=== PATIENT | female | born 1960 | race Caucasian/White ===

== ENCOUNTER 2020-04-28 01:00 | Emergency (ER) | payer MEDICAID, SELFPAY ==
[2020-04-28 01:03] VITALS: BP 201/91; PULSE 120; RESP 18; TEMP 36.2; O2SAT 100; BMI 31.1
--- NOTE | 2020-04-28 01:16 | ECG_ITS ---
Test Reason : HTN Blood Pressure : / mmHG Vent. Rate : 125 BPM Atrial Rate : 125 BPM P-R Int : 150 ms QRS Dur : 144 ms QT Int : 352 ms P-R-T Axes : 068 032 -21 degrees QTc Int : 508 ms Sinus tachycardia with occasional Premature ventricular complexes Left bundle branch block Abnormal ECG When compared with ECG of 25-MAY-2019 21:39, Premature ventricular complexes are now Present Heart rate has increased Referred By: Kelsie Rutledge Electronically Signed By:GARRETT RIVERA MD
--- NOTE | 2020-04-28 01:16 | XR_ITS ---
EXAMINATION: XR CHEST CLINICAL INFORMATION: Cough COMPARISON: 05/25/2019 TECHNIQUE: Frontal view of the chest was obtained. FINDINGS: Cardiac leads overlie the chest. The lungs are well expanded. No edema or effusion. Minimal left basilar opacity. Mild bronchial wall thickening.. No pneumothorax. The cardiomediastinal silhouette is within normal limits. No acute osseous abnormality. XR/XR chest 1V IMPRESSION: Minimal opacity at the left base with atelectasis. Bronchial wall thickening suggests a small airways process.
[2020-04-28 01:27] VITALS: BP 183/106; PULSE 120; RESP 12; TEMP 36.2; O2SAT 98
--- NOTE | 2020-04-28 01:27 | ED_ITS ---
HPI - General Adult General Chief complaint: General Medical Stated complaint: High Blood Pressure Time Seen by Provider: 04/28/20 01:15 Source: patient Mode of arrival: ambulatory Limitations: no limitations History of Present Illness HPI narrative: This is a 60-year-old female with history of hypertension who states that she for that to take her medication yesterday but denies any associated headaches, dizziness, chest pain, shortness of breath, blurred vision. Related Data Home Medications Medication Instructions Recorded Confirmed amlodipine 2.5 mg PO DAILY 04/28/20 04/28/20 Allergies Allergy/AdvReac Type Severity Reaction Status Date / Time No Known Allergies Allergy Verified 04/28/20 01:01 Review of Systems Review of Systems: Pertinent positives and negatives as in HPI and 10 point review of systems otherwise negative. [facility], [facility] Past Medical History Source: nursing notes reviewed Medical History HTN (hypertension) Social History Social History Alcohol intake: never Smoked in Last 30 Days: No Use of substances other than those prescribed or required for medical reasons: No Advance Directives: No Physical Exam Vital Signs: Vital Signs: Last Vital Signs Temp 97.2 F 04/28/20 01:27 Pulse 96 04/28/20 04:58 Resp 12 04/28/20 01:27 BP 128/80 04/28/20 04:58 Pulse Ox 98 04/28/20 01:27 Body Mass Index 31.1 VITAL SIGNS: Reviewed. GENERAL: Well developed, well nourished, in no acute distress. HEAD: Normocephalic/atraumatic, EYES: PERRLA, EOMI intact without pain, no nystagmus/pallor/icterus noted EARS: Ext canals without abnormality, TMs non-bulging and non-erythematous NOSE: Nares patent bilateral OROPHARYNX: no oral lesions noted, posterior pharynx clear and non-erythematous without noted tonsillar enlargement/erythema/exudates NECK: Supple, no adenopathy LUNGS: Normal breath sounds. No adventitious sounds or accessory muscle use. SpO2<98> CARDIOVASCULAR: Regular rate and rhythm without noted murmurs, no JVD or lower extremity edema. ABDOMEN: Soft, non-tender, non-distended with bowel sounds. No rigidity. No guarding. No palpable masses or hernias noted MUSCULOSKELETAL: No tenderness, deformities, or effusions noted on gross inspection. EXTREMITIES: No cyanosis, clubbing or edema. SKIN: Inspection of the skin reveals no rashes, ulcerations, jaundice, pallor, or petechiae. NEUROLOGIC: Alert and oriented x 4. Strength and sensation to light touch were grossly intact x 4. Course Course Course Narrative: This is a 60-year-old female with history and clinical presentation consistent with significantly elevated blood pressure and will evaluate for any evidence of end-organ damage. On review of all investigations there is a very mild leukocytosis that is most consistent with stress response as chest x-ray and urinalysis are negative for any evidence of infection, and EKG is negative for any evidence of a mildly elevated patient has a HEART score of 3 and repeat high sensitivity troponin does not exceed the the Delta 50%. All results and findings were discussed with patient at bedside and she was strongly encouraged to follow-up with her primary care provider and to remain more consistent with her medication regimen. Patient was discharged in stable condition. Medical Decision Making Lab Data Result diagrams: 04/28/20 02:09 04/28/20 02:09 Labs: Lab Results 04/28/20 04/28/20 04/28/20 Range/Units 02:09 02:09 02:09 WBC 11.2 H (4.8-10.8) X10*3/uL RBC 4.99 (4.20-5.50) X10*6/uL Hgb 14.2 (12.0-16.0) g/dl Hct 43.9 (37-47) % MCV 88.0 (80-98) fL MCH 28.5 (27.0-33.0) pg MCHC 32.3 (31.0-35.0) g/dl RDW 13.3 (11.0-16.0) % Plt Count 451 H (160-400) X10*3/uL MPV 10.3 (9.4-12.3) fL Immature Gran % (Auto) 0.4 (0.0-0.4) % Neut % (Auto) 79.8 H (45-73) % Lymph % (Auto) 12.2 L (20-40) % [place] % (Auto) 4.7 (2-11) % Eos % (Auto) 2.6 (0-4) % Baso % (Auto) 0.3 (0-2) % Lymph # (Auto) 1.4 (1.2-4.9) X10*3/uL [place] # (Auto) 0.5 (0.1-1.2) X10*3/uL Eos # (Auto) 0.3 (0.0-0.4) X10*3/uL Baso # (Auto) 0.0 (0.0-0.2) X10*3/uL Abs Immat Gran (auto) 0.05 H (0.00-0.03) X10*3/uL Absolute Neuts (auto) 9.0 H (2.0-8.3) X10*3/uL Absolute Nucleated RBC 0.000 (0.0-0.012) X10*3/uL Nucleated RBC % (auto) 0.0 (0.0-0.2) /100WBC PT 11.3 (10.8-13.0) SEC INR 1.0 (0.9-1.1) Sodium 139 (135-145) mmol/L Potassium 4.2 (3.3-5.1) mmol/l Chloride 102 (96-108) mmol/L Carbon Dioxide 26 (22-29) mmol/L Anion Gap 15 (12-20) BUN 16 (9-16) mg/dL Creatinine 0.73 (0.5-1.4) mg/dL Estim Creat Clear Calc 77.8 Estimated GFR > 60 Random Glucose 127 H (60-115) mg/dL Calcium 10.2 (8.4-10.2) mg/dL Magnesium 1.9 (1.6-2.6) mg/dL Total Bilirubin 0.4 (0.0-1.0) mg/dL AST 24 (5-31) U/L ALT 31 (0-31) U/L Alkaline Phosphatase 119 H (39-117) U/L Troponin I High Sens (<3.5-17.0) ng/L Total Protein 8.9 H (6.5-8.0) g/dL Albumin 5.1 H (3.5-5.0) g/dL Lipase 30 (8-78) U/L Urine Color Urine Appearance Urine pH (5.0-8.0) Ur Specific [place] (1.005-1.025) Urine Protein (NEG-TRACE) MG/DL Urine Glucose (UA) (NEG) MG/DL Urine Ketones (NEG) MG/DL Urine Blood (NEG) Urine Nitrite (NEG) Ur Leukocyte Esterase (NEG) 04/28/20 04/28/20 04/28/20 Range/Units 02:09 02:09 05:07 WBC (4.8-10.8) X10*3/uL RBC (4.20-5.50) X10*6/uL Hgb (12.0-16.0) g/dl Hct (37-47) % MCV (80-98) fL MCH (27.0-33.0) pg MCHC (31.0-35.0) g/dl RDW (11.0-16.0) % Plt Count (160-400) X10*3/uL MPV (9.4-12.3) fL Immature Gran % (Auto) (0.0-0.4) % Neut % (Auto) (45-73) % Lymph % (Auto) (20-40) % [place] % (Auto) (2-11) % Eos % (Auto) (0-4) % Baso % (Auto) (0-2) % Lymph # (Auto) (1.2-4.9) X10*3/uL [place] # (Auto) (0.1-1.2) X10*3/uL Eos # (Auto) (0.0-0.4) X10*3/uL Baso # (Auto) (0.0-0.2) X10*3/uL Abs Immat Gran (auto) (0.00-0.03) X10*3/uL Absolute Neuts (auto) (2.0-8.3) X10*3/uL Absolute Nucleated RBC (0.0-0.012) X10*3/uL Nucleated RBC % (auto) (0.0-0.2) /100WBC PT (10.8-13.0) SEC INR (0.9-1.1) Sodium (135-145) mmol/L Potassium (3.3-5.1) mmol/l Chloride (96-108) mmol/L Carbon Dioxide (22-29) mmol/L Anion Gap (12-20) BUN (9-16) mg/dL Creatinine (0.5-1.4) mg/dL Estim Creat Clear Calc Estimated GFR Random Glucose (60-115) mg/dL Calcium (8.4-10.2) mg/dL Magnesium (1.6-2.6) mg/dL Total Bilirubin (0.0-1.0) mg/dL AST (5-31) U/L ALT (0-31) U/L Alkaline Phosphatase (39-117) U/L Troponin I High Sens 8.4 8.3 (<3.5-17.0) ng/L Total Protein (6.5-8.0) g/dL Albumin (3.5-5.0) g/dL Lipase (8-78) U/L Urine Color COLORLESS Urine Appearance CLEAR Urine pH 6.0 (5.0-8.0) Ur Specific [place] 1.010 (1.005-1.025) Urine Protein NEG (NEG-TRACE) MG/DL Urine Glucose (UA) NEG (NEG) MG/DL Urine Ketones NEG (NEG) MG/DL Urine Blood NEG (NEG) Urine Nitrite NEG (NEG) Ur Leukocyte Esterase NEG (NEG) Discharge Plan Discharge Clinical Impression: Hypertension Qualifiers: Hypertension type: unspecified Qualified Code(s): I10 - Essential (primary) hypertension Patient Disposition: Home, Self-Care Instructions: Hypertension (ED), DASH Eating Plan (ED), Low-Sodium Diet (ED) Additional Instructions: 1. Reanude todos los medicamentos caseros seg?n lo prescrito. 2. Llame al consultorio de keita proveedor de atenci?n primaria el lunes por la ma?eddie para programar martin maty de seguimiento. El paciente y / o la luz reconocen que comprenden los resultados (seg?n corresponda), el diagn?stico, el plan de tratamiento, la necesidad de seguimiento y los s?ntomas que deber?an impulsar el regreso a la yohana de emergencias. Prescriptions: No Action amlodipine 2.5 mg Tablet 2.5 mg PO DAILY RF: 0 Referrals: Libby Hassan NP [Primary Care Provider] - 2 days (For re-evaluation of high blood pressure.) Print Language: Belarusian
[2020-04-28 02:00] VITALS: BP 127/69; PULSE 102
[2020-04-28] MEDS: amLODIPine Besylate 5 MG TABLET PO (02:00)
[2020-04-28 02:17] LABS: Basophils Percent Auto 0.3 % (0-2); Eosinophils Absolute Auto 0.3 X10*3/uL (0.0-0.4); Eosinophils Percent Auto 2.6 % (0-4); Hematocrit 43.9 % (37-47); Hemoglobin 14.2 g/dl (12.0-16.0); Imm Gran Abs Auto 0.05 X10*3/uL (0.00-0.03); Imm Gran Pct Auto 0.4 % (0.0-0.4); Lymphocytes Absolute Auto 1.4 X10*3/uL (1.2-4.9); Lymphocytes Percent Auto 12.2 % (20-40); MANUAL DIFF FLAG NO; Mean Corpuscular HGB Conc 32.3 g/dl (31.0-35.0); Mean Corpuscular Hemoglobin 28.5 pg (27.0-33.0); Mean Platelet Volume 10.3 fL (9.4-12.3); Monocytes Absolute Auto 0.5 X10*3/uL (0.1-1.2); Monocytes Percent Auto 4.7 % (2-11); Neutrophils Percent Auto 79.8 % (45-73); Platelet Count 451 X10*3/uL (160-400); Red Blood Count 4.99 X10*6/uL (4.20-5.50); Red Cell Distribution Width 13.3 % (11.0-16.0); White Blood Count 11.2 X10*3/uL (4.8-10.8)
[2020-04-28 02:19] LABS: Glucose Urine UA NEG (NEG); Leukocyte Esterase Urine NEG (NEG); Nitrite Urine NEG (NEG); Urine Blood NEG (NEG); Urine Ketones NEG (NEG); Urine Protein NEG (NEG-TRACE)
[2020-04-28 02:21] LABS: Appearance Urine CLEAR; Color Urine COLORLESS; UACC Culture Trigger NO
[2020-04-28 02:24] LABS: Prothrombin Time 11.3 SEC (10.8-13.0)
--- NOTE | 2020-04-28 02:38 | PC.NURSE ---
pt is a&o, no sob or chest pain. no n/v. lv line in place. labs and ua collected and sent. pt placed on telemeter.
[2020-04-28 02:43] LABS: Alanine Aminotransferase 31 U/L (0-31); Albumin Level 5.1 g/dL (3.5-5.0); Alkaline Phosphatase 119 U/L (39-117); Anion Gap 15 (12-20); Aspartate Amino Transferase 24 U/L (5-31); Bilirubin Total 0.4 mg/dL (0.0-1.0); Blood Urea Nitrogen 16 mg/dL (9-16); Calcium 10.2 mg/dL (8.4-10.2); Carbon Dioxide 26 mmol/L (22-29); Chloride 102 mmol/L (96-108); Creatinine Clr Calc Pharmacy 77.8; Estimated Glomerular Filt Rate > 60; Glucose Random 127 mg/dL (60-115); Lipase 30 U/L (8-78); Magnesium 1.9 mg/dL (1.6-2.6); Potassium 4.2 mmol/l (3.3-5.1); Sodium 139 mmol/L (135-145); Total Protein 8.9 g/dL (6.5-8.0)
[2020-04-28 02:45] LABS: Troponin-I High Sensitivity 8.4 ng/L (<3.5-17.0)
[2020-04-28 04:58] VITALS: BP 128/80; PULSE 96
[2020-04-28 05:45] LABS: Troponin-I High Sensitivity 8.3 ng/L (<3.5-17.0)
== END 2020-04-28 06:13 | disposition home or self-care (01) ==
PROVIDERS: Emergency Provider Student in an Organized Health Care Education/Training Program; PCP Nurse Practitioner Family
DX: I10 Essential (primary) hypertension (principal); Z79.899 Other long term (current) drug therapy
CPT/HCPCS: 36415; 71045; 80053; 81003; 83690; 83735; 84484; 85025; 85610; 93005; 99284

== ENCOUNTER 2021-04-05 16:36 | Emergency (ER) | payer MEDICAID, SELFPAY ==
--- NOTE | ~2021-04-05 | CT_ITS ---
EXAMINATION: CT CHEST WITHOUT CONTRAST CLINICAL INFORMATION: Left supraclavicular mass. COMPARISON: Most recent chest radiograph dated 04/28/2020 TECHNIQUE: Multidetector volumetric CT imaging of the chest was done. Axial MIP volume rendering provided. Sagittal and coronal reformatted images were obtained. This CT examination was performed using dose optimization techniques as appropriate, variously including the following: *Automated exposure control *Adjustment of mA and/or kV according to patient size (this includes techniques or standardized protocols for targeted exams where dose is matched to indication/reason for exam; i.e. extremities or head) *Use of iterative reconstruction technique DLP: 316 mGy-cm FINDINGS: BIODIESEL PRODUCTION ASSOCIATE: Unremarkable. LUNGS: The lungs are clear with no evidence of inflammation or nodules. The central airways are patent. MEDIASTINUM: No cardiomegaly. No pericardial effusion. No thoracic aortic dilatation. No superior mediastinal or hilar lymphadenopathy. Surgical clips adjacent to the left thyroid. PLEURA: There is no pleural effusion. No pleural mass or thickening. CHEST WALL/AXILLA: No visualized abdominal wall mass or fluid collection. No significant mass in the supraclavicular regions, however, evaluation of the neck soft tissue structures is limited on chest imaging. No significant axillary or internal mammary lymphadenopathy. UPPER ABDOMEN: Mild hepatomegaly and hepatic steatosis. Status post cholecystectomy. Nonobstructing left upper pole 0.3 cm renal stone. Otherwise, the visualized upper abdominal structures are unremarkable. OSSEOUS STRUCTURES: Unremarkable. CT/CT chest wo con IMPRESSION: 1. No soft tissue mass or fluid collection. No significant lymphadenopathy. Evaluation of the supraclavicular regions is somewhat limited on the chest CT. 2. No pulmonary nodule, mass, or airspace consolidation. 3. Mild hepatomegaly and hepatic steatosis. Status post cholecystectomy. Nonobstructing left upper pole renal stone.
[2021-04-05 16:45] VITALS: BP 164/80; BP 175/75; PULSE 106; PULSE 109; RESP 18; TEMP 37.6; O2SAT 98; BMI 30.3
--- NOTE | 2021-04-05 16:45 | ECG_ITS ---
Test Reason : Q? EKG CHANGE Blood Pressure : / mmHG Vent. Rate : 111 BPM Atrial Rate : 111 BPM P-R Int : 132 ms QRS Dur : 148 ms QT Int : 364 ms P-R-T Axes : 080 036 -63 degrees QTc Int : 495 ms Sinus tachycardia Left bundle branch block Abnormal ECG Premature ventricular complexes are no longer Present Referred By: Jaspreet Wright Electronically Signed By:GARRETT RIVERA MD
--- NOTE | 2021-04-05 16:53 | ED.GENADULT ---
HPI - General Adult General Chief complaint: General Medical Stated complaint: htn Time Seen by Provider: 04/05/21 16:52 History of Present Illness HPI narrative: Patient history of intermittent left bundle branch block on amlodipine 2.5 mg daily [facility] blood pressure into 220s /100s after arrival patient's blood pressure 175/75 also then noticed patient has left supraclavicular fullness questionable lymph node which is nontender patient noticed 2 days patient denies any shortness of breath no family history of stomach cancer, family history of breast cancer in her sister Related Data Home Medications Medication Instructions Recorded Confirmed amlodipine 2.5 mg tablet 2.5 mg PO DAILY 04/28/20 04/28/20 Allergies Allergy/AdvReac Type Severity Reaction Status Date / Time No Known Allergies Allergy Verified 04/05/21 16:45 Review of Systems Review of Systems: Yes all other systems are reviewed and are negative [facility] Past Medical History Medical History HTN (hypertension) Social History Social History Alcohol intake: never Patient Tobacco Use Status: Never used Tobacco Use of substances other than those prescribed or required for medical reasons: No Advance Directives: No Advance Directives Information Provided: No Patient : No Physical Exam Vital Signs: Vital Signs: Last Vital Signs Temp 99.7 F 04/05/21 17:05 Pulse 106 H 04/05/21 17:05 Resp 18 04/05/21 17:05 BP 175/75 H 04/05/21 17:05 Pulse Ox 98 04/05/21 17:05 Body Mass Index 30.3 Appearance: Alert. Oriented X3. No acute distress. Eyes: No pallor/ icterus ENT: Pharynx normal. Oral Mucosa moist Neck: Normal inspection. Neck supple. Soft tissue swelling l supraclavicular space CVS: Normal heart rate and rhythm. Pulses normal. Respiratory: No respiratory distress. Equal air entry bilateral, no wheezing/rales/rhonchi Abdomen: Soft and nontender. Bowel sounds are present, no mass palpable, no CVA tenderness Skin: Skin warm and dry. Normal skin color. Normal skin turgor. Extremities: No lower extremity edema. No calf tenderness Neuro: Oriented X 3. No motor deficit. Medical Decision Making MDM Narrative Medical decision making narrative: Patient has soft tissue swelling likely lipoma in the left supraclavicular space CT scan chest negative for any significant lymphadenopathy in area will discharge patient home advised to follow with PCP as needed Lab Data Labs: Lab Results 04/05/21 Range/Units 16:45 POC Glucose 89 (60-115) mg/dL Discharge Plan Discharge Clinical Impression: Lipoma Qualifiers: Lipoma location: neck Qualified Code(s): D17.0 - Benign lipomatous neoplasm of skin and subcutaneous tissue of head, face and neck Patient Disposition: Home, Self-Care Instructions: Soft Tissue Mass (ED) Additional Instructions: You have fatty tissue in left lower neck Follow with PCP if swelling gets worse Take blood pressure medicine as prescribed by PCP Tiene marcial zimmerman en la parte inferior izquierda del jason. Siga con keita PCP si la hinchaz?n empeora [place] los medicamentos para la presi?n arterial seg?n lo prescrito por keita PCP. Prescriptions: No Action amlodipine 2.5 mg Tablet 2.5 mg PO DAILY RF: 0 Interventions: ED Discharge Assessment Last Done: 04/05/21 20:00 Discharge Date/Time: 04/05/21 20:01 Print Language: Slovak
[2021-04-05 16:57] LABS: Glucose, Whole Blood 89 mg/dL (60-115)
[2021-04-05 17:05] VITALS: BP 175/75; PULSE 106; RESP 18; TEMP 37.6; O2SAT 98
== END 2021-04-05 20:01 | disposition home or self-care (01) ==
PROVIDERS: Emergency Provider Internal Medicine
DX: D17.0 Benign lipomatous neoplasm of skin and subcutaneous tissue of head, face and neck (principal); I10 Essential (primary) hypertension
CPT/HCPCS: 71250; 82947; 93005; 99284

== ENCOUNTER 2021-06-25 12:54 | Outpatient (REF) | payer MEDICAID, SELFPAY ==
--- NOTE | ~2021-06-25 | MM_ITS ---
EXAMINATION: MM SCREENING DIGITAL BREAST TOMOSYNTHESIS, BILATERAL CLINICAL INFORMATION: Screening. Asymptomatic. The lifetime risk of breast cancer based on the Tyrer-Cuzick Model is 6%. COMPARISON: Mammography: 08/25/2013 TECHNIQUE: Digital breast tomosynthesis is performed in both the craniocaudal and mediolateral oblique views along with computer-aided detection (CAD). Synthesized 2D images are generated from the tomosynthesis. FINDINGS: There are scattered areas of fibroglandular density (ACR BI-RADS breast composition Category b). There are no significant masses, abnormal calcifications, or other abnormalities. There are some scattered benign round, vascular, and ductal secretory calcifications. The axilla and skin contours are unremarkable. MM/MM tomosynthesis screening BI IMPRESSION: No mammographic evidence of malignancy. ASSESSMENT: BI-RADS 2: Benign RECOMMENDATION: Routine annual mammography screening. This patient's information was entered into a reminder system with a target due date for their next mammogram.
== END 2021-06-25 12:55 | disposition home or self-care (01) ==
LOC: HO.MAMMO 12:54
PROVIDERS: Visit Provider Nurse Practitioner Family
DX: Z12.31 Encounter for screening mammogram for malignant neoplasm of breast (principal)
CPT/HCPCS: 77063; 77067

== ENCOUNTER → 2022-06-04 10:21 | Outpatient (REF) | payer MEDICAID, SELFPAY ==
--- NOTE | 2022-06-04 10:26 | CA_ITS ---
Transthoracic Echocardiogram Patient (Last, First, Middle): Kristel Martinez M Gender: Female Date of : 1960 Age: 62 Procedure Date: 06/04/2022 Procedure Type: Transthoracic Echocardiogram Location: OP Height: 157.48 cm Weight: 68.49 kg BSA: 1.70 m2 Heart Rate: bpm BP: 170 / 72 mmHg Optoelectronic Technician: SB Referring MD: Manny Bush MD Symptoms: I44.7 LBBB Study Quality: Adequate w contrast ECG Rhythm: Sinus Conclusions: - The left ventricular systolic function is mildly decreased. The calculated ejection fraction is 46% by biplane method. - There is paradoxical septal motion consistent with a left bundle branch block. - No obvious valvular pathology seen on this study. Findings Procedure Information Contrast agent, definity, is being given per protocol without apparent complications. Left Ventricle Normal left ventricular cavity size. There is normal left ventricular wall thickness. The left ventricular systolic function is mildly decreased. The calculated ejection fraction is 46% by biplane method. There is paradoxical septal motion consistent with a left bundle branch block. E/E prime ratio is >15, consistent with elevated filling pressures. Evidence suggests grade I (mild) diastolic dysfunction. Right Ventricle Normal right ventricular cavity size and systolic function. Atria Both atria are normal in size. Aortic Valve There is a normal trileaflet aortic valve. There is no aortic valve stenosis. There is no aortic valve regurgitation. Mitral Valve There is mild mitral annular calcification. There is trace mitral valve regurgitation. There is no mitral valve stenosis. Pulmonic Valve The pulmonic valve is likely normal. Tricuspid Valve Normal tricuspid valve structure. There is no tricuspid valve regurgitation. There is no evidence of pulmonary hypertension. Great Vessels The asc aorta is normal in size. Venous The inferior vena cava is normal in size and collapses greater than 50% with inspiration. Pericardium/Pleural There is no evidence of pericardial effusion. Prior Study Comparison Changes noted compared to prior study dated: 12/17/2005. LVEF marginally lower, but could also be inter-observer variability. Recommendations, Care & Conclusions No obvious valvular pathology seen on this study. Measurements 2D Linear Measurements IVSd: 0.92 0.6-0.9/0.6-1.0 cm LVIDd: 5.15 3.9-5.3/4.2-5.9 cm LVIDd Index: 3.03 2.4-3.2/2.2-3.1 cm/m2 LVIDs: 3.86 2.0-3.6 cm LVPWd: 0.85 0.7-1.1 cm LA Diam: 3.60 2.7-3.8/3.0-4.0 cm LAIDs Index: 2.12 1.5-2.3 cm/m2 LV Mass: 201.08 67-162/88-224 g LV Mass Index: 118.28 43-95/49-115 g/m2 LVOT Diam: 2.10 3.0+(-)1.3 cm 2D Systolic Function EF 4C: 38.20 >55% EF 2C: 52.40 >55% EF BiP: 46.10 >55% Mitral Valve MV Pk E: 0.81 MV PK A: 1.15 MV Decel Time: 150.00 E/A: 0.70 E'Lateral: 6.74 E'Medial: 3.59 E/E' Med: 22.70 E/E' Lat: 12.10 PHT: 44.00 MVA PHT: 5.00 Decel Burnett: 5.43 Aortic Valve AoV Pk Reynold: 1.48 AoV Mn Reynold: 1.08 AoV VTI: 0.32 AoV Pk Grad: 9.00 Aov Mn Grad: 5.00 DEIDRA Cont.VTI: 2.14 LVOT LVOT Pk Reynold: 0.89 LVOT Mn Reynold: 0.71 LVOT VTI: 0.20 LVOT Pk Grad: 3.00 LVOT Mn Grad: 2.00 LVOT Diam: 2.10 LVOT Area: 3.46 Diastolic Function MV Pk E: 0.81 MV Pk A: 1.15 E/A: 0.70 E'Medial: 3.59 E/E' Med: 22.70 E' Laterial: 6.74 E/E' Lat: 12.10 Right Ventricle TAPSE (mm): 19.40 TVS' Reynold: 9.25 Tricuspid Valve RA Press: 3.00 Great Vessels Aorta Sinus of Valsalva: 3.00 2.0-3.5 cm Ao Asc: 3.00 2.1-3.4 cm Pulmonary Valve PV Pk Reynold: 1.01 Peak PV Grad: 4.00 Updated in Other Vendor System with Status of Final Mello Juárez MD electronically signed on 06/06/2022 1:47:53 PM with status of Final
== END ==
LOC: HO.CARD 10:21
PROVIDERS: Visit Provider Internal Medicine Cardiovascular Disease
DX: I44.7 Left bundle-branch block, unspecified (principal)
CPT/HCPCS: 93306; Q9957

== ENCOUNTER → 2022-09-09 09:49 | Outpatient (REF) | payer MEDICAID, SELFPAY ==
--- NOTE | 2022-09-09 09:53 | CA_ITS ---
Transthoracic Echocardiogram/ Limited Patient (Last, First, Middle): Kristel Martinez M Gender: Female Date of : 1960 Age: 62 Procedure Date: 09/09/2022 Procedure Type: Transthoracic Echocardiogram/ Limited Location: OP Height: 157.48 cm Weight: 68.95 kg BSA: 1.70 m2 Heart Rate: bpm BP: 165 / 90 mmHg Spinner Hydraulic: JETHRO Edward MD: Manny Bush MD Damage Appraiser: Blaine Cardoza MD Symptoms: I43 CARDIOMYOPATHY MANISFESTATION UNDERLYING DISEASE Study Quality: Fair ECG Rhythm: Sinus Conclusions: - Normal LV ejection fraction at 55-60% with impaired relaxation filling pattern Findings Left Ventricle Normal left ventricular size, thickness, and systolic function. The visually estimated ejection fraction is between 55-60%. There is paradoxical septal motion consistent with a left bundle branch block. Spectral Doppler is indicative of an impaired relaxation filling pattern. E/E prime ratio is between 8 and 15 consistent with indeterminate filling pressures. Prior Study Comparison Changes noted compared to prior study dated: 06/04/2022. LV systolic function has improved Measurements 2D Linear Measurements IVSd: 1.14 0.6-0.9/0.6-1.0 cm LVIDd: 4.27 3.9-5.3/4.2-5.9 cm LVIDd Index: 2.51 2.4-3.2/2.2-3.1 cm/m2 LVIDs: 3.62 2.0-3.6 cm LVPWd: 1.13 0.7-1.1 cm LV Mass: 209.95 67-162/88-224 g LV Mass Index: 123.50 43-95/49-115 g/m2 LVOT Diam: 2.00 3.0+(-)1.3 cm 2D Systolic Function EF 4C: 56.70 >55% EF 2C: 56.20 >55% EF BiP: 56.20 >55% Mitral Valve MV Pk E: 0.74 MV PK A: 1.14 MV Decel Time: 223.00 E/A: 0.60 E'Lateral: 8.59 E'Medial: 5.00 E/E' Med: 14.70 E/E' Lat: 8.60 PHT: 65.00 MVA PHT: 3.38 Decel [place]: 3.31 LVOT LVOT Pk Reynold: 0.99 LVOT Mn Reynold: 0.71 LVOT VTI: 0.20 LVOT Pk Grad: 4.00 LVOT Mn Grad: 2.00 LVOT Diam: 2.00 LVOT Area: 3.14 Diastolic Function MV Pk E: 0.74 MV Pk A: 1.14 E/A: 0.60 E'Medial: 5.00 E/E' Med: 14.70 E' Laterial: 8.59 E/E' Lat: 8.60 Tricuspid Valve RA Press: 3.00 Updated in Other Vendor System with Status of Final Blaine Cardoza MD electronically signed on 09/10/2022 9:09:25 AM with status of Final
== END ==
LOC: HO.CARD 09:49
PROVIDERS: Visit Provider Internal Medicine Cardiovascular Disease
DX: I42.9 Cardiomyopathy, unspecified (principal)
CPT/HCPCS: 93308

== ENCOUNTER 2023-07-22 12:39 | Outpatient (REF) | payer MEDICAID, SELFPAY ==
--- NOTE | ~2023-07-22 | MM_ITS ---
EXAMINATION: MM SCREENING DIGITAL BREAST TOMOSYNTHESIS, BILATERAL CLINICAL INFORMATION: Screening. Asymptomatic. COMPARISON: Mammography: This study is compared with prior exams dating back to 2013. TECHNIQUE: Digital breast tomosynthesis is performed in both the craniocaudal and mediolateral oblique views along with computer-aided detection (CAD). Synthesized 2D images are generated from the tomosynthesis. FINDINGS: There are scattered areas of fibroglandular density (ACR BI-RADS breast composition Category b). There are no significant masses, abnormal calcifications, or other abnormalities. MM/MM tomosynthesis screening BI IMPRESSION: No mammographic evidence of malignancy. ASSESSMENT: BI-RADS BI-RADS 1 - Negative RECOMMENDATION: Routine annual mammography screening. 1 year F/U This examination should not preclude the clinical evaluation of a suspicious palpable abnormality. This patient's information was entered into a reminder system with a target due date for their next mammogram.
== END 2023-07-22 12:40 | disposition home or self-care (01) ==
LOC: HO.MAMMO 12:39
PROVIDERS: PCP General Practice; Visit Provider General Practice
DX: Z12.31 Encounter for screening mammogram for malignant neoplasm of breast (principal)
CPT/HCPCS: 77063; 77067

== ENCOUNTER → 2023-07-22 13:30 | Outpatient (BNV) | payer MEDICAID, SELFPAY | PROVIDERS: PCP General Practice; Visit Provider Radiology Diagnostic Radiology | DX: Z12.31 Encounter for screening mammogram for malignant neoplasm of breast (principal) | CPT/HCPCS: 77063; 77067 ==

== ENCOUNTER 2023-07-28 09:02 | Outpatient (REF) | payer MEDICAID, SELFPAY ==
[2023-07-28 12:08] LABS: Alanine Aminotransferase 25 U/L (0-31); Albumin Level 4.4 g/dL (3.5-5.0); Alkaline Phosphatase 71 U/L (39-117); Anion Gap 12 (12-20); Aspartate Amino Transferase 19 U/L (5-31); Bilirubin Total 0.5 mg/dL (0.0-1.0); Blood Urea Nitrogen 13 mg/dL (9-16); Calcium 9.9 mg/dL (8.4-10.2); Carbon Dioxide 27 mmol/L (22-29); Chloride 105 mmol/L (96-108); Cholesterol 261 mg/dL (<200); Estimated Glomerular Filt Rate > 60; Glucose Random 93 mg/dL (60-115); HDL Cholesterol 56 mg/dL (>40); LDL Cholesterol Calculated 181 mg/dL (<100); Potassium 4.5 mmol/L (3.3-5.1); Sodium 139 mmol/L (135-145); Total Protein 7.9 g/dL (6.5-8.0); Triglycerides 124 mg/dL (<150)
[2023-07-28 16:22] LABS: Estimated Average Glucose 117 mg/dL; Hemoglobin A1c % 5.7 % (<6.0)
== END 2023-07-28 09:03 | disposition home or self-care (01) ==
LOC: HO.HHCL 09:02
PROVIDERS: Visit Provider General Practice
DX: I10 Essential (primary) hypertension (principal)
CPT/HCPCS: 36415; 80053; 80061; 83036

== ENCOUNTER 2024-05-31 12:57 | Outpatient (AMB) | payer MEDICARE, SELFPAY ==
--- NOTE | 2024-05-31 14:15 | MHC.OFFWIV ---
Intake Vital Signs 05/31/24 14:21 Weight 165 lb BP 174/90 H Blood Pressure Location Lt brachial Position Sitting Pulse 80 Pulse Source Pulse Oximeter Pulse Oximetry (%) 98 Oxygen Delivery Method Room Air Intake Visit Reasons: EP rash on leg Intake Note: Patient here for rash on right thigh that has been present for 3-4 days. Patient Tobacco Use Status: Never used Tobacco Allergies No Known Allergies Allergy (Verified 05/31/24 14:19) Do you need a note to return to daycare/school/sports/work: No HPI HPI Comments History of Present Illness Details This is a 64-year-old female with a past medical history of hypertension presenting for evaluation of a painful evolving lesion on her right thigh that she 1st noted 4 days ago. Patient states that she first had pain in her right buttock two days preceding the appearance of the rash. Patient has not taken any medication for treatment of her discomfort. Patient describes her discomfort as an itchy and aching like sensation. [facility] Medical History HTN (hypertension) Social History Alcohol intake: never Patient Tobacco Use Status: Never used Tobacco Review of Systems Const All systems reviewed & are unremarkable except as noted in HPI and below Reports no additional complaints Eyes Reports no additional complaints ENT Reports no additional complaints Card Reports no additional complaints Resp Reports no additional complaints GI Reports no additional complaints Reports no additional complaints Musc Reports no additional complaints Skin/Breast Reports non-healing lesions (right thigh) Neuro Reports no additional complaints Psych Reports no additional complaints Dimas/Lymph Reports no additional complaints Physical Exam Vital Signs: Last Vital Signs Pulse 80 05/31/24 14:21 BP 174/90 H 05/31/24 14:21 Pulse Ox 98 05/31/24 14:21 Oxygen Delivery Method Room Air 05/31/24 14:21 Patient is hypertensive Const General: cooperative, healthy appearing, comfortable, no acute distress, well developed, alert, awake and Physically active; No acute distress Nutritional Appearance: average body habitus Orientation/consciousness: patient oriented x3 Limitations: no limitations Skin Other: Grouped papules and vesicles on an erythematous base extending from the distal anterior right thigh to the right buttock in a dermatomal pattern. No evidence of a secondary cellulitis. Neuro General: patient oriented x3 Psych Appearance: grossly normal Mental Status: mental status grossly normal Insight: Good insight present (Psych) Judgement: Good judgement present (Psych) Assessment & Plan Assessment & Plan (1) Herpes zoster: Code(s): B02.9 - Zoster without complications Qualifiers: Herpes zoster complications: without complications Qualified Code(s): B02.9 - Zoster without complications Plan: Valtrex t.i.d. x7 days; ibuprofen 600 mg every 6-8 hours only as needed for discomfort. Medications: New valacyclovir 1,000 mg PO TID 21 tabs 0RF ibuprofen 600 mg PO Q6H PRN 20 tabs 0RF pain Coding Level of Care Code Est Pt Level 3 (75288) Diagnoses Herpes zoster without complication B02.9 Herpes zoster complications: without complications Time Spent (min) 20
[2024-05-31 14:21] VITALS: BP 174/90; PULSE 80; O2SAT 98
== END 2024-05-31 15:00 | disposition home or self-care (01) ==
PROVIDERS: PCP General Practice; Visit Provider Physician Assistant
DX: B02.9 Zoster without complications (principal)

== ENCOUNTER → 2024-05-31 12:57 | Outpatient (BNVA) | payer MEDICARE, SELFPAY | PROVIDERS: PCP General Practice; Visit Provider Physician Assistant | DX: B02.9 Zoster without complications (principal) | CPT/HCPCS: 99212 ==